=== PATIENT | male | born 1950 | race Caucasian/White ===

== ENCOUNTER 2016-07-15 12:39 | Inpatient (IN) | payer MEDICARE ==
[~2016-07-15] VITALS: Ht 170.2 cm; Wt 68.5 kg
[2016-07-15] VITALS (10 sets, daily range): BP systolic 90–123; RESP 18–22; TEMP 97.6–98.9; Ht 170.2 cm; Wt 68.5 kg
[2016-07-15] MEDS ORDERED: hePARIN 1,000 UNITS/ML (PORCINE) 10 ML IV PRN (15:55)
[2016-07-15] MEDS ORDERED: SODIUM CHLORIDE 0.9% 1,000 ML IV SCH (15:55)
[2016-07-15] MEDS ORDERED: SALINE FLUSH 10 ML FLUSH PRN (16:15)
[2016-07-15] MEDS ORDERED: MAG HYDROX 30 ML UDC PO PRN (16:15)
[2016-07-15] MEDS ORDERED: GLUCAGON 1 MG VIAL IM PRN (16:15)
[2016-07-15] MEDS: DUONEB INH SCH ×3 (16:15→23:00)
[2016-07-15] MEDS ORDERED: ERGOCALCIFEROL 50,000 UNITS (1.25 MG) CAP PO SCH (16:15)
[2016-07-15] MEDS ORDERED: BISACODYL 10 MG SUPP RECTAL PRN (16:15)
[2016-07-15] MEDS ORDERED: ALU/MAG/SIM 30 ML UDC PO PRN (16:15)
[2016-07-15] MEDS ORDERED: TEMAZEPAM 7.5 MG CAP PO PRN (16:15)
[2016-07-15] MEDS ORDERED: DEXTROSE 50% SYRINGE 50 ML IV PRN (16:15)
[2016-07-15] MEDS ORDERED: BISACODYL EC 5 MG TAB PO PRN (16:15)
[2016-07-15] MEDS ORDERED: ADENOSINE 6 MG/2 ML VIAL IV ONE (16:35)
[2016-07-15] MEDS ORDERED: CARDIZEM 1 MG/ML DRIP 125 ML IV SCH (16:35)
[2016-07-15] MEDS ORDERED: SODIUM CHLORIDE 0.9% 0 ML ONE (17:35)
[2016-07-15] MEDS ORDERED: METOPROLOL 5 MG/5 ML VIAL IV ONE (17:35)
[2016-07-15] MEDS ORDERED: **NOTE TO NURSE XX SCH ×2 (20:36→21:55)
[2016-07-15] MEDS ORDERED: TAMSULOSIN 0.4 MG CAP PO SCH (21:00)
[2016-07-15] MEDS ORDERED: KAYEXOLATE 15 GM/60 ML BTL PO ONE (21:53)
[2016-07-15] MEDS ORDERED: DILTIAZEM 125 MG in DEXTROSE 125 ML IV ONE (22:10)
[2016-07-15] MEDS ORDERED: SODIUM CHLORIDE 0.9% 500 ML IV ONE (22:20)
[2016-07-15] MEDS: CARDIZEM 1 MG/ML DRIP 125 ML IV SCH (22:33)
[2016-07-15] MEDS: CALCIUM ACETATE 667MG CAP PO SCH (23:14)
[2016-07-15] MEDS: SALINE FLUSH 10 ML FLUSH SCH (23:15)
[2016-07-15] MEDS: CYCLOBENZAPRINE 5 MG TAB PO SCH (23:15)
[2016-07-15] MEDS: GABAPENTIN 600 MG TAB PO SCH (23:15)
[2016-07-15] MEDS: TRAMADOL 50 MG TAB PO SCH (23:16)
[2016-07-15] MEDS: CEFTRIAXONE 1 GM in SODIUM CHLORIDE 0.9% 50 ML IV SCH (23:17)
[2016-07-16] VITALS (53 sets, daily range): BP systolic 83–148; RESP 16–20; TEMP 97.5–98.6
[2016-07-16] MEDS: DUONEB INH SCH ×4 (02:31→14:47)
[2016-07-16] MEDS: SODIUM CHLORIDE 0.9% FLUSH BAG 500 ML IV SCH (04:11)
[2016-07-16] MEDS: PANTOPRAZOLE 40 MG TAB PO SCH (06:10)
[2016-07-16] MEDS ORDERED: LEVOTHYROXINE 0.125 MG TAB PO SCH (07:00)
[2016-07-16] MEDS ORDERED: LEVOTHYROXINE 0.025 MG TAB PO SCH (07:00)
[2016-07-16] MEDS ORDERED: MISSING DOSE XX ONE ×2 (07:20→17:55)
[2016-07-16] MEDS: CARDIZEM 1 MG/ML DRIP 125 ML IV SCH (07:42)
[2016-07-16] MEDS: SALINE FLUSH 10 ML FLUSH SCH ×2 (08:00→20:00)
[2016-07-16] MEDS: CALCIUM ACETATE 667MG CAP PO SCH ×3 (08:28→17:46)
[2016-07-16] MEDS ORDERED: AMIODARONE 900 MG in DEXTROSE 5% EXCEL 500 ML IV SCH (09:00)
[2016-07-16] MEDS ORDERED: AMIODARONE 150 MG in DEXTROSE 5% 100 ML IV ONE (09:00)
[2016-07-16] MEDS: AMIODARONE 450 MG in DEXTROSE 5% AVIVA 250 ML IV SCH ×2 (10:13→18:41)
[2016-07-16] MEDS: Carvedilol 3.125 MG TAB PO SCH ×2 (10:18→20:51)
[2016-07-16] MEDS: CYCLOBENZAPRINE 5 MG TAB PO SCH ×2 (10:18→20:50)
[2016-07-16] MEDS: GABAPENTIN 600 MG TAB PO SCH ×3 (10:18→20:50)
[2016-07-16] MEDS: TRAMADOL 50 MG TAB PO SCH ×3 (10:25→20:51)
[2016-07-16] MEDS: CEFTRIAXONE 1 GM in SODIUM CHLORIDE 0.9% 50 ML IV SCH (15:26)
[2016-07-17] VITALS (19 sets, daily range): BP systolic 60–127; RESP 20; TEMP 97.5–98.3
[2016-07-17] MEDS: SODIUM CHLORIDE 0.9% FLUSH BAG 500 ML IV SCH (05:35)
[2016-07-17] MEDS: PANTOPRAZOLE 40 MG TAB PO SCH (06:07)
[2016-07-17] MEDS: SALINE FLUSH 10 ML FLUSH SCH ×2 (08:00→20:49)
[2016-07-17] MEDS: CALCIUM ACETATE 667MG CAP PO SCH ×4 (08:00→16:20)
[2016-07-17] MEDS: CEFTRIAXONE 1 GM in SODIUM CHLORIDE 0.9% 50 ML IV SCH (08:29)
[2016-07-17] MEDS: GABAPENTIN 600 MG TAB PO SCH ×3 (08:30→20:44)
[2016-07-17] MEDS: Carvedilol 3.125 MG TAB PO SCH (08:31)
[2016-07-17] MEDS: CYCLOBENZAPRINE 5 MG TAB PO SCH ×2 (08:31→20:44)
[2016-07-17] MEDS: TRAMADOL 50 MG TAB PO SCH ×3 (08:31→20:49)
[2016-07-17] MEDS: AMIODARONE 200 MG TAB PO SCH (12:01)
[2016-07-17] MEDS ORDERED: PHARMACY TO DOSE VANCOMYCIN IV SCH (13:35)
[2016-07-17] MEDS ORDERED: VANCOMYCIN 1,500 MG in SODIUM CHLORIDE 0.9% 250 ML IV ONE (13:55)
[2016-07-17] MEDS: Carvedilol 6.25 MG TAB PO SCH (20:49)
[2016-07-18] VITALS (8 sets, daily range): BP systolic 93–111; RESP 18–20; TEMP 97.3–98.9
[2016-07-18] MEDS: SODIUM CHLORIDE 0.9% FLUSH BAG 500 ML IV SCH (06:11)
[2016-07-18] MEDS: PANTOPRAZOLE 40 MG TAB PO SCH (06:11)
[2016-07-18] MEDS: CALCIUM ACETATE 667MG CAP PO SCH ×3 (08:00→17:25)
[2016-07-18] MEDS: AMIODARONE 200 MG TAB PO SCH (09:00)
[2016-07-18] MEDS: SALINE FLUSH 10 ML FLUSH SCH ×2 (12:53→20:29)
[2016-07-18] MEDS: CYCLOBENZAPRINE 5 MG TAB PO SCH ×2 (12:54→20:30)
[2016-07-18] MEDS: Carvedilol 6.25 MG TAB PO SCH ×2 (12:54→20:30)
[2016-07-18] MEDS: GABAPENTIN 600 MG TAB PO SCH ×3 (12:54→20:30)
[2016-07-18] MEDS: CEFTRIAXONE 1 GM in SODIUM CHLORIDE 0.9% 50 ML IV SCH (12:56)
[2016-07-18] MEDS: TRAMADOL 50 MG TAB PO SCH ×3 (13:01→20:31)
[2016-07-18] MEDS ORDERED: VANCOMYCIN 750 MG in SODIUM CHLORIDE 0.9% 250 ML IV ONE (21:00)
[2016-07-19 02:33] VITALS: BP_SYST 97; RESP 20; TEMP 98.2
[2016-07-19] MEDS: SODIUM CHLORIDE 0.9% FLUSH BAG 500 ML IV SCH ×2 (05:42→22:03)
[2016-07-19 07:55] VITALS: BP_SYST 101; RESP 18; TEMP 98.4
[2016-07-19] MEDS: CALCIUM ACETATE 667MG CAP PO SCH ×3 (08:00→18:11)
[2016-07-19] MEDS: GABAPENTIN 600 MG TAB PO SCH ×3 (09:00→21:43)
[2016-07-19] MEDS: TRAMADOL 50 MG TAB PO SCH ×3 (09:00→21:00)
[2016-07-19] MEDS ORDERED: SALINE FLUSH 10 ML FLUSH PRN (10:00)
[2016-07-19] MEDS ORDERED: Phytonadione 5 MG TAB PO ONE (10:00)
[2016-07-19] MEDS ORDERED: LORAZEPAM 0.5 MG TAB PO PRN (10:00)
[2016-07-19] MEDS: SALINE FLUSH 10 ML FLUSH SCH ×2 (11:05→21:43)
[2016-07-19] MEDS: CEFTRIAXONE 1 GM in SODIUM CHLORIDE 0.9% 50 ML IV SCH (11:05)
[2016-07-19 11:39] VITALS: BP_SYST 111; RESP 20; TEMP 98.1
[2016-07-19] MEDS: Carvedilol 6.25 MG TAB PO SCH ×2 (13:25→21:43)
[2016-07-19] MEDS: PANTOPRAZOLE 40 MG TAB PO SCH (13:25)
[2016-07-19] MEDS: CYCLOBENZAPRINE 5 MG TAB PO SCH ×2 (13:25→21:43)
[2016-07-19] MEDS ORDERED: MIDAZOLAM 2 MG/2 ML INJ ONE (16:06)
[2016-07-19 16:07] VITALS: BP_SYST 106; RESP 20; TEMP 98.1
[2016-07-19 20:15] VITALS: BP_SYST 103; RESP 18; TEMP 97.8
[2016-07-19] MEDS ORDERED: TEMAZEPAM 7.5 MG CAP PO PRN (21:00)
[2016-07-19] MEDS ORDERED: TEMAZEPAM 15 MG CAP PO PRN (21:00)
[2016-07-19 23:37] VITALS: BP_SYST 127; RESP 18; TEMP 97.9
[2016-07-20] VITALS (13 sets, daily range): BP systolic 95–117; RESP 16–18; TEMP 97.2–98.3
[2016-07-20] MEDS: PANTOPRAZOLE 40 MG TAB PO SCH (06:39)
[2016-07-20] MEDS: SALINE FLUSH 10 ML FLUSH SCH ×3 (08:44→21:05)
[2016-07-20] MEDS: GABAPENTIN 600 MG TAB PO SCH ×3 (08:45→21:05)
[2016-07-20] MEDS: TRAMADOL 50 MG TAB PO SCH ×3 (08:45→21:31)
[2016-07-20] MEDS: CALCIUM ACETATE 667MG CAP PO SCH ×3 (08:45→16:06)
[2016-07-20] MEDS: CEFTRIAXONE 1 GM in SODIUM CHLORIDE 0.9% 50 ML IV SCH (08:46)
[2016-07-20] MEDS: Carvedilol 6.25 MG TAB PO SCH ×2 (08:47→21:05)
[2016-07-20] MEDS: CYCLOBENZAPRINE 5 MG TAB PO SCH ×2 (09:00→21:05)
[2016-07-20] MEDS ORDERED: MORPHINE 2 MG/ML SYR IV ONE (14:05)
[2016-07-20] MEDS ORDERED: MIDAZOLAM 2 MG/2 ML INJ IV PRN (14:05)
[2016-07-20] MEDS ORDERED: MIDAZOLAM 2 MG/2 ML INJ IV ONE (14:05)
[2016-07-20] MEDS ORDERED: LIDOCAINE 2% 20 ML SUBQ ONE (14:05)
[2016-07-20] MEDS ORDERED: SALINE FLUSH 10 ML FLUSH PRN (14:05)
[2016-07-20] MEDS ORDERED: DEXTROSE 5% SALINE 0.45% 1,000 ML IV SCH (14:05)
[2016-07-20] MEDS ORDERED: ONDANSETRON 4 MG VIAL IV PRN (14:05)
[2016-07-20] MEDS ORDERED: ATROPINE 1 MG/10 ML SYRINGE IV PRN (14:05)
[2016-07-20] MEDS ORDERED: MIDAZOLAM 2 MG/2 ML INJ ONE (16:46)
[2016-07-20] MEDS ORDERED: FENTANYL 100 MCG/2 ML AMP ONE (16:46)
[2016-07-20] MEDS ORDERED: LIDOCAINE 2% 20 ML ONE (16:46)
[2016-07-20] MEDS ORDERED: hePARIN 1,000 UNITS/1 ML VIAL ONE (16:46)
[2016-07-21] MEDS ORDERED: VANCOMYCIN 750 MG in SODIUM CHLORIDE 0.9% 250 ML IV ONE
[2016-07-21] MEDS: SODIUM CHLORIDE 0.9% FLUSH BAG 500 ML IV SCH (01:18)
[2016-07-21 03:13] VITALS: BP_SYST 113; RESP 16; TEMP 97.9
[2016-07-21] MEDS ORDERED: SODIUM CHLORIDE 0.9% FLUSH BAG 500 ML IV SCH (06:00)
[2016-07-21] MEDS ORDERED: DEPOTESTOSTERONE IM SCH (09:00)
[2016-07-21 09:02] VITALS: BP_SYST 96; RESP 16; TEMP 97.3
[2016-07-21] MEDS: PANTOPRAZOLE 40 MG TAB PO SCH (09:52)
[2016-07-21] MEDS: SALINE FLUSH 10 ML FLUSH SCH ×2 (09:52→09:53)
[2016-07-21] MEDS: GABAPENTIN 600 MG TAB PO SCH ×2 (09:53→15:18)
[2016-07-21] MEDS: Carvedilol 6.25 MG TAB PO SCH (09:53)
[2016-07-21] MEDS: CYCLOBENZAPRINE 5 MG TAB PO SCH (09:53)
[2016-07-21] MEDS: TRAMADOL 50 MG TAB PO SCH ×2 (09:53→15:19)
[2016-07-21] MEDS: CALCIUM ACETATE 667MG CAP PO SCH ×2 (09:53→12:36)
[2016-07-21 11:55] VITALS: BP_SYST 103; RESP 16; TEMP 97.7
[2016-07-21 14:53] VITALS: BP_SYST 103; RESP 16; TEMP 97.7
== END 2016-07-21 16:19 | disposition short-term general hospital (02) | DRG 286 ==
LOC: ENRESERVTM → ENRESERVDT → ER 12:39 → EMR 16:31 → ENPENDDIS 16:31 → PCU 21:50
PROVIDERS: ADMIT Family Medicine; ATTEND Family Medicine
PROC: 5A1D60Z (ICD-10-PCS; principal; 2016-07-15)
PROC: 4A023N8 Measurement of Cardiac Sampling and Pressure, Bilateral, Percutaneous Approach (ICD-10-PCS; 2016-07-20)
PROC: B2151ZZ Fluoroscopy of Left Heart using Low Osmolar Contrast (ICD-10-PCS; 2016-07-20)
PROC: B2111ZZ Fluoroscopy of Multiple Coronary Arteries using Low Osmolar Contrast (ICD-10-PCS; 2016-07-20)
DX: I13.2 Hypertensive heart and chronic kidney disease with heart failure and with stage 5 chronic kidney disease, or end stage renal disease (principal); I50.43 Acute on chronic combined systolic (congestive) and diastolic (congestive) heart failure; N18.6 End stage renal disease; I48.92 Unspecified atrial flutter; E87.1 Hypo-osmolality and hyponatremia; N39.0 Urinary tract infection, site not specified; E87.2 Acidosis; E11.22 Type 2 diabetes mellitus with diabetic chronic kidney disease; E11.65 Type 2 diabetes mellitus with hyperglycemia; Z99.2 Dependence on renal dialysis; Z87.891 Personal history of nicotine dependence; Z79.4 Long term (current) use of insulin; D63.1 Anemia in chronic kidney disease; E55.9 Vitamin D deficiency, unspecified; E11.42 Type 2 diabetes mellitus with diabetic polyneuropathy; E87.5 Hyperkalemia; E03.9 Hypothyroidism, unspecified; B95.7 Other staphylococcus as the cause of diseases classified elsewhere; I35.0 Nonrheumatic aortic (valve) stenosis; I35.1 Nonrheumatic aortic (valve) insufficiency; I25.10 Atherosclerotic heart disease of native coronary artery without angina pectoris
CPT/HCPCS: 36415; 71010; 76705; 80053; 80202; 81001; 82248; 82550; 82553; 82803; 82947; 83735; 83880; 84100; 84439; 84443; 84484; 85025; 85379; 85610; 85652; 86141; 87040; 87077; 87088; 87186; 92960; 93005; 93306; 93312; 93460; 94640; 94799; 99223; 99232; 99233; 99238